=== PATIENT | male | born 1950 | race Caucasian/White ===

== ENCOUNTER 2017-02-28 14:08 | Emergency (ER) | payer MEDICAID ==
--- NOTE | 2017-02-28 15:18 | ED Physician Chart ---
ED Chief Complaint/HPI - Patient Information Date Seen:: 02/28/17 Time Seen:: 15:18 Chief Complaint:: Nausea and vomiting History of Present Illness:: 66 yo male was brought by BLS to ER for nausea and vomiting for 3 hours. In the ER, the patient had elevated glucose level at 334. He had numbness and tingling in bilateral lower extremities treated with Gabapentin. He was found to have a large amount of body lice in his hair, lew and body hair. Allergies:: Allergies Allergy/AdvReac Type Severity Reaction Status Date / Time No Known Allergies Allergy Verified 02/28/17 14:18 Vitals:: Vital Signs - 8 hr 02/28/17 14:18 Temp 98.8 F HR 94 RR 18 BP 104/64 O2 Sat % 98 ED Review of Systems - Review of Systems General/Constitutional: No fever Skin: Rash Head: No headache Eyes: No pain Neck: No neck pain Cardio Vascular: No chest pain Pulmonary: No SOB GI: Nausea, Vomiting Musculoskeletal: No bone or joint pain Neurological: Paresthesia ED Past Medical History - Past Medical History Past Medical History: DM, Dyslipidemia (hyperlipidemia) Social History: Smoker, No Alcohol, No Drug Use Family Medical History - Family Member Mother Hx Family Cancer: No Hx Family Coronary Artery Disease: No Hx Family Congestive Heart Failure: No Hx Family Hypertension: No Hx Family Diabetes: No Hx Family Seizures: No Hx Family Dementia: No Hx Family COPD: No ED Physical Exam - Physical Examination General/Constitutional: Awake, Alert Head: Atraumatic Eyes: PERRL Other Skin comments:: large amount of lice in hair, lew and body hair Neck: No nuchal rigidity Respiratory: Clear to Auscultation Cardio Vascular: RRR, No murmur, gallop, rubs, NL S1 S2 GI: No tenderness/rebounding/guarding Extremities: normal strength in all extremities Other Neuro/Psych comments:: paraesthesia ED Labs/Radiology/EKG Results - Lab Results Results: Laboratory Tests 02/28/17 14:32 POC Glucose 334 H ED Assessment - Assessment General Assessment: Hyperglycemia DM II poorly controlled Diabetic neuropathy Body lice Anemia Hyponatremia Assessment/Comments:: CBC, CMP, HbA1c, UA Regular insulin NS 1L IV bolus 5% permethrin cream DC home Ivermectin 15mg x 1 Gabapentin 600mg bid Metformin 1000mg bid F/u PCP or return to ER if symptoms worsen ED Septic Shock - . Is Septic Shock (SBP<90, OR Lactate>4 mmol\L) present?: No - <6hrs of presentation: Vital Signs: Vital Signs - 8 hr 02/28/17 14:18 Temp 98.8 F HR 94 RR 18 BP 104/64 O2 Sat % 98 ED Reassessment (Disposition) - Reassessment Reassessment Condition:: Improved - Patient Disposition Discharge/Transfer:: Home ED Discharge Plan - Patient Disposition Admit/Discharge/Transfer: PT DISCHARGED HOME Condition at Disposition: Stable Prescriptions: Gabapentin [Neurontin*] 600 mg PO BID #60 cap Ivermectin [Stromectol] 15 mg PO ONCE #5 tab metFORMIN [Glucophage] 1,000 mg PO BID #60 tab Instructions: Type 2 Diabetes Mellitus, Adult, Lice, Head and Pubic, Personal Hygiene, Contact Precautions, [id number]
[2017-02-28 15:40] LABS: % BASOPHILS 0.9 % (0.0-2.0); % EOSINOPHILS 3.8 % (0.0-5.0); % LYMPHOCYTES 32.4 % (20.0-50.0); % MONOCYTES 11.7 % (2.0-10.0); % NEUTROPHILS 51.2 % (40.0-80.0); BASOPHILE ABSOLUTE 0.1 Th/cumm (0-0.2); EOSINOPHILE ABSOLUTE 0.3 Th/cmm (0.1-0.4); HEMATOCRIT 34.1 % (41.0-60); HEMOGLOBIN 11.3 gm/dL (12-16); LYMPHOCYTE ABSOLUTE 2.5 Th/cmm (1.5-3.0); MEAN CELL VOLUME 95.2 fl (80-99); MEAN CORPUSCULAR HEMOGLOBIN 31.4 pg (26.0-30.0); MEAN PLATELET VOLUME 7.3 fl; MONOCYTE ABSOLUTE 0.9 Th/cmm (0.3-1.0); NEUTROPHILE ABSOLUTE 3.8 Th/cmm (1.8-8.0); PLATELET COUNT 354 Th/cmm (150-400); RED BLOOD COUNT 3.59 Mil/cmm (4.30-5.70); RED CELL DISTRIBUTION WIDTH 15.3 % (11.5-20.0); WHITE BLOOD COUNT 7.6 Th/cmm (4.8-10.8)
[2017-02-28 16:01] LABS: ALB/GLOB RATIO 1.5 (1.0-1.8); ALBUMIN 4.2 gm/dL (4.2-5.5); ALKALINE PHOSPHATASE 94 U/L (34-104); ANION GAP 23.2 (7.0-16.0); BILIRUBIN,TOTAL 0.5 mg/dL (0.3-1.0); BUN - UREA NITROGEN 14 mg/dL (7-25); CALCIUM SERUM 9.3 mg/dL (8.6-10.3); CARBON DIOXIDE 22.4 mEq/L (21.0-31.0); CHLORIDE 89 mEq/L (98-107); CREATININE - SERUM 0.7 mg/dL (0.7-1.3); GFR AFRICAN-AMERICAN > 60.0 ml/min (>90); GFR NON AFRICAN-AMERICAN > 60.0 ml/min; GLUCOSE 341 mg/dL (70-105); POTASSIUM SERUM 3.6 mEq/L (3.5-5.1); SGOT 99 U/L (13-39); SGPT/ALT 102 U/L (7-52); SODIUM SERUM 131 mEq/L (136-145); TOTAL PROTEIN,SERUM 7.1 gm/dL (6.0-8.3)
[2017-02-28] MEDS ORDERED: Sodium Chloride 0.9% 1,000 ML IV ONE (17:00)
[2017-02-28] MEDS ORDERED: INSULIN HUMAN REGULAR 100 UNITS/ML UNIT SUBQ ONE (17:01)
[2017-02-28] MEDS ORDERED: INSULIN HUMAN REGULAR 100 UNITS/ML UNIT ONE (17:12)
[2017-02-28] MEDS ORDERED: Permethrin 1% Rinse 60 mL Bottle TP ONE (18:41)
[2017-02-28 18:44] LABS: URINE BILIRUBIN NEGATIVE (NEGATIVE); URINE BLOOD NEGATIVE (NEGATIVE); URINE GLUCOSE (UA) >=1000 mg/dL (NEGATIVE); URINE KETONE 15 mg/dL (NEGATIVE); URINE LEUKOCYTE ESTERASE NEGATIVE (NEGATIVE); URINE NITRATE NEGATIVE (NEGATIVE); URINE PROTEIN TRACE mg/dL (NEGATIVE)
[2017-02-28 18:45] LABS: URINE CLARITY CLEAR (CLEAR); URINE COLOR YELLOW; URINE EPITHELIAL CELLS NONE SEEN /lpf (FEW); URINE MICROSCOPIC INDICATED? YES; URINE RBC NONE SEEN /hpf (0-5); URINE SOURCE RANDOM; URINE WBC NONE SEEN /hpf (0-5)
[2017-02-28 18:46] LABS: URINE BACTERIA NONE SEEN /hpf (NONE SEEN)
[2017-03-01 15:38] LABS: A1C % 10.4 % (4.0-6.0)
== END 2017-02-28 21:58 | disposition home or self-care (01) ==
LOC: ER 14:08
DX: E11.9 Type 2 diabetes mellitus without complications (principal); B85.1 Pediculosis due to Pediculus humanus corporis
CPT/HCPCS: 36415-UA; 80053-TC; 81001-TC; 82948-90; 83036-90; 85025-TC; J1815; J7030; Z7502